=== PATIENT | female | born 1985 | race Caucasian/White ===

== ENCOUNTER 2018-11-25 11:08 | Emergency (ER) | payer OTHER ==
[~2018-11-25] VITALS: Ht 165.1 cm; Wt 76.4 kg
[2018-11-25 11:15] VITALS: BP 127/71
[2018-11-25 12:27] VITALS: BP 120/74
== END 2018-11-25 12:28 | disposition home or self-care (01) ==
LOC: MED 11:08
DX: M54.12 Radiculopathy, cervical region (principal); M25.512 Pain in left shoulder; M25.522 Pain in left elbow
CPT/HCPCS: 99283